=== PATIENT | male | born 1980 | race Asian ===

== ENCOUNTER → 2023-12-19 06:26 | Day surgery (SDC) | payer OTHER, SELFPAY | LOC: GI 06:26 | PROVIDERS: ATTENDING PHYSICIAN Internal Medicine; FAMILY PHYSICIAN Family Medicine | DX: K22.89 Other specified disease of esophagus (principal); K31.89 Other diseases of stomach and duodenum; R10.13 Epigastric pain | CPT/HCPCS: 43239; 88305; 88342 ==

== ENCOUNTER → 2024-01-01 09:07 | Outpatient (REF) | payer OTHER, SELFPAY | LOC: RAD 09:07 | PROVIDERS: ATTENDING PHYSICIAN Internal Medicine; FAMILY PHYSICIAN Family Medicine | DX: R10.13 Epigastric pain (principal) | CPT/HCPCS: 76700 ==